=== PATIENT | male | born 1955 | race Caucasian/White ===

== ENCOUNTER 2022-09-11 11:02 | Observation (INO) | payer MEDICARE, SELFPAY ==
[2022-09-11] VITALS (10 sets, daily range): BP systolic 146–187; BP diastolic 105–123; PULSE 67–99; RESP 16–28; TEMP 36.2–36.6; O2SAT 95–100; BMI 25.7; BMI 27.4
--- NOTE | 2022-09-11 11:20 | EKG12_ITS ---
Test Reason : CP Blood Pressure : / mmHG Vent. Rate : 091 BPM Atrial Rate : 091 BPM P-R Int : 186 ms QRS Dur : 076 ms QT Int : 334 ms P-R-T Axes : 034 -09 036 degrees QTc Int : 410 ms Normal sinus rhythm Low voltage QRS Borderline ECG Confirmed by JOS SON, KULDIP ([id number]), sound editor ZOHRA MATHEWS ([id number]) on 09/12/2022 1:37:06 PM Referred By: Confirmed By:KULDIP ARGUELLO MD
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
--- NOTE | 2022-09-11 11:25 | CT_ITS ---
STUDY: CT BRAIN WITHOUT CONTRAST REASON FOR EXAM: Male, 67 years old. chest pain for 3 days, numbness in right fingers, weakness RADIATION DOSAGE (If Supplied By Facility): CTDIvol = ( 29.62 ) mGy, DLP = ( 1569.17 ) mGycm TECHNIQUE: Transaxial CT imaging of the brain was performed without administration of intravenous contrast material. Individualized dose optimization techniques were used for this CT. COMPARISON: None. FINDINGS: Normal soft tissue structures. Normal calvarium. There is mild cerebral atrophy with widening of the extra-axial spaces and ventricular dilatation. Normal white matter tracts of the cerebral hemispheres. Normal basal ganglia and thalami. Normal brainstem. Normal cerebellum. There is no intracranial hemorrhage. There are no findings of an acute ischemic infarction. Normal visualized paranasal sinuses. IMPRESSION: Chronic involutional changes of the brain. STUDY: CTA HEAD AND NECK WITH CONTRAST REASON FOR EXAM: Male, 67 years old. confusion, neck pain RADIATION DOSAGE (If Supplied By Facility): CTDIvol = ( 29.62 ) mGy, DLP = ( 1569.17 ) mGycm TECHNIQUE: CT angiography was performed with a multi-detector CT scanner. Data acquisition was obtained from the skull base through the vertex following intravenous administration of IV 100mL [id number]-370. MIP images were reconstructed from the axial data set. Post-processing of the angiographic images was performed, with multiplanar reformation and 3D reconstruction. Individualized dose optimization techniques were used for this CT. COMPARISON: No relevant priors. FINDINGS: Normal bilateral petrous carotid arteries. There is calcified plaque formation of the right cavernous carotid artery, with a mild stenosis (less than 50%). Normal left cavernous carotid artery with a normal supraclinoid bifurcation. Normal right A1 segments of the anterior cerebral artery. Normal left A1 segments of the anterior cerebral artery. Normal intact anterior communicating artery (ACOM). Normal bilateral A2 segments of the anterior cerebral arteries. Normal right M1 and M2 segments of the middle cerebral arteries, with a normal M1 bifurcation. Normal left M1 and M2 segments of the middle cerebral arteries, with a normal M1 bifurcation. Normal right posterior communicating artery (PCOM). Normal left posterior communicating artery (PCOM). There is a small atretic left vertebral artery with a dominant right vertebral artery. There is tortuosity with elongation of the basilar artery. The visualized bilateral superior cerebellar (SCA) arteries are normal. Normal bilateral P1, P2 and visualized P3 segments of the posterior cerebral arteries. The right posterior cerebral artery is hypoplastic most likely developmentally. There is no demonstrated aneurysm of the [place] of [place]. AORTIC ARCH: There is atherosclerotic calcific plaque formation of the aortic arch and great vessels arising from the aortic arch, without a hemodynamically significant stenosis. There is a normal origin of the brachiocephalic, left common carotid, and left subclavian arteries. Normal origins of the brachiocephalic, left common carotid, and left subclavian arteries. RIGHT CAROTID ARTERIES: Normal right common carotid artery (CCA). Normal right common carotid bulb. Normal origin of the right internal carotid (ICA) artery without a hemodynamically significant stenosis. Normal visualized cervical portion of the right internal carotid artery. Normal origin of the right external carotid artery (ECA). LEFT CAROTID ARTERIES: Normal left common carotid artery (CCA). There is moderate atherosclerotic plaque formation with moderate narrowing of the carotid bulb. There is moderate atherosclerotic plaque formation of the origin of the left internal carotid artery with an estimated stenosis of 50-69% stenosis. Normal visualized cervical portion of the left internal carotid artery. Normal origin of the left external carotid artery (ECA). VERTEBRAL ARTERIES: There is enhancement within the bilateral vertebral arteries with a small left vertebral artery, and a dominant right vertebral artery. Severe atherosclerotic stenosis due to calcified and noncalcified plaque/mural thrombus at the junction of the right subclavian and vertebral artery see image #88/[id number] series 4. There is severe/high-grade stenosis of the left vertebral artery/subclavian junction with collateral vessels seen around the chronic stenosis/occlusion. Cervical spine: Moderate to severe degenerative changes are present throughout the cervical spine with severe disc space narrowing from C3-C4 down to C6-C7. Mild central canal stenosis with mass effect on anterior aspect of the cord is present at several levels due to disc osteophyte complexes. Moderate to severe bilateral foraminal stenosis with nerve root compression is also present at multiple levels due to uncovertebral facet joint hypertrophy. CT/CTA Head AND Neck W/ Contrast IMPRESSION: 1. Normal [place] of [place] without a demonstrated aneurysm or hemodynamically significant stenosis. 2. No thrombus or occlusion is seen in the major intracranial arteries. 3. There is moderate atherosclerotic plaque formation of the origin of the left internal carotid artery with an estimated stenosis of 50-69% stenosis. 4. Severe atherosclerotic stenosis due to calcified and noncalcified plaque/mural thrombus at the junction of the right subclavian and vertebral artery see image #88/530 series 4. 5. There is severe/high-grade stenosis of the left vertebral artery/subclavian junction with collateral vessels seen around the chronic stenosis/occlusion. 6. Moderate to severe multilevel degenerative changes of the cervical spine Electronically Signed: Taiwo García MD at 13:08 EST ,
[2022-09-11 11:30] LABS: Absolute Lymphocyte Count 2.22 X10^3/uL (0.83-4.51); Absolute Neutrophil Count 4.8 X10^3/uL (2.0-7.7); Basophil# 0.04 X10^3/uL; Basophil% 0.5 % (0-1); Eosinophil# 0.06 X10^3/uL; Eosinophils% 0.7 % (0-5); Hemoglobin 16.7 g/dL (13.0-16.5); Lymphocyte # 2.22 X10^3/ul (0.83-4.51); Lymphocyte % 27.5 % (19-41); Mean Corp Hgb Conc 34.1 g/dL (32-36); Mean Corpuscular Hgb 30.6 pg (27.0-32.0); Mean Corpuscular Volume 89.7 fL (80-94); Mean Platelet Vol. 8.7 fl (6.2-12.0); Monocyte# 0.93 X10^3/uL; Monocyte% 11.5 % (0-10); NRBC Flagged by Analyzer 0 % (0-5); Neutrophil # 4.79 X10^3/uL (2.7-7.7); Neutrophil % 59.4 % (47-70); Platelet Count 202 K/mm3 (150-450); RBC Distribution Width CV 12.5 % (11.6-14.6); Red Blood Count 5.46 M/mm3 (4.6-6.2); White Blood Count 8.1 K/mm3 (4.4-11.0)
[2022-09-11 11:40] LABS: D-Dimer Quantitative (DVT/PE) 0.58 FEU/ug/m (0.27-0.49)
[2022-09-11 11:44] LABS: Anion Gap 8 (5-15); BUN 21 mg/dL (7-18); Calcium,Total 9.1 mg/dL (8.5-10.1); Chloride 106 mmol/L (98-107); Creatinine, Serum 1.05 mg/dL (0.70-1.30); EST Glomerular Filtration Rate 75 mL/min (>60); Est Glom Filt Rate - Afr Amer 90 mL/min (>60); Estimated Creatinine Clearance 71.71 ml/min; Glucose 124 mg/dL (74-106); Potassium 4.2 mmol/L (3.5-5.1); Sodium Level 139 mmol/L (136-145); Troponin-I HS (w/2H Reflex) 5 pg/mL (3.0-78.0)
--- NOTE | 2022-09-11 11:45 | RAD_ITS ---
STUDY: X-RAY CHEST REASON FOR EXAM: Male, 67 years old. chest pain for 3 days, numbness in right fingers, weakness TECHNIQUE: Single AP portable view of the chest. COMPARISON: November 26, 2012 FINDINGS: The lungs are clear and expanded. There is no demonstrated pleural abnormality. Normal size heart. Normal mediastinum and sapna. Normal visualized pulmonary arteries. There is atherosclerotic tortuosity of the aortic arch and descending thoracic aorta. There are diffuse degenerative changes of the visualized thoracic spine. Suture anchors are seen in the right humeral head. There is no demonstrated abnormality of the visualized soft tissue structures of the upper abdomen. RAD/Chest 1 View (Portable) IMPRESSION: No acute process Electronically Signed: Taiwo García MD at 12:22 EST ,
[2022-09-11 13:26] LABS: Reflex Troponin-HS? (from REC) Y
[2022-09-11] MEDS: Aspirin 81 MG TAB.CHEW 324 MG PO (13:37)
[2022-09-11] MEDS: Labetalol (Prefilled) 20 MG/4 ML IV (13:59)
[2022-09-11 14:23] LABS: Troponin-I HS 5 pg/mL (3.0-78.0)
--- NOTE | 2022-09-11 14:23 | PCM.HP.STD ---
HPI - General General Date of Admission: 09/11/22 HPI Narrative ELIUD GARLAND, is a 67 M who presents to the hospital with right-sided chest pain as well as right arm achiness and numbness tingling in the tips of his right fingers. His right-sided chest pain is reproducible on palpation and is the exact same pain he has been feeling. He also states that he has significant neck pain because of a previous fractured cervical spine so it is very likely that these arm paresthesias are due to a radiculopathy however he also endorses slow mentation recently to the point where his girlfriend was concerned enough that she had asked him to come to the hospital for evaluation. Lab work is unremarkable, he does appear maybe a little bit dehydrated and his blood pressure is elevated. He did have a CTA of the head and neck in the ER demonstrated severe atherosclerotic stenosis at the junction of the right subclavian and vertebral artery and then there is also a high-grade stenosis of the left vertebral artery and subclavian artery as well as significant moderate to severe multilevel degenerative changes of his cervical spine consistent with his history of a fracture. [facility] Medical History (Updated 09/11/22 @ 13:45 by MICHELE Diaz) Back pain Home Medications celecoxib 200 mg capsule 200 mg PO PRN PRN arthritis 09/11/22 [History Last Taken Unknown] cyclobenzaprine 10 mg tablet 10 mg PO BID 09/11/22 [History Last Taken 09/11/22 13:40] gabapentin 300 mg capsule 600 mg PO BID 09/11/22 [History Last Taken Unknown] hydrocodone-acetaminophen 5-325mg 5mg-325mg 1 tab PO BID 09/11/22 [History Last Taken 09/11/22 13:40] Allergy/AdvReac Type Severity Reaction Status Date / Time No Known Allergies Allergy Verified 09/11/22 11:05 Family History (Updated 09/11/22 @ 14:[address] Ramy Deluca MD) Other Heart disease Surgical History (Updated 09/11/22 @ 11:17 by Daphney Denise) History of lumbar surgery History of rotator cuff surgery Social History Smoking Status: Never smoker ROS Constitutional Constitutional: Denies chills, fatigue, fever(s) or malaise Eyes Eyes: Denies blurry vision ENT HEENT: Denies headache(s) or nasal discharge Cardiovascular Cardiovascular: Reports other Details: Right-sided chest wall pain ; Denies chest pain, dyspnea on exertion or syncope Respiratory/Chest Respiratory/Chest: Denies cough, shortness of breath at rest or shortness of breath with exertion Gastrointestinal Gastrointestinal: Denies constipation, diarrhea, nausea or vomiting Genitourinary Genitourinary: Denies dysuria Musculoskeletal Musculoskeletal: Reports neck pain Neurologic Neurologic: Reports paresthesias RUE (On the tips of all of his fingers); Denies focal weakness, numbness or tremor(s) Psychiatric Psychiatric: Denies anxiety or depression Vital Signs Vital Signs Vital Signs: 09/11/22 11:03 09/11/22 11:13 09/11/22 11:14 Temperature 97.2 F L Temperature Source Temporal Pulse Rate 99 97 Respiratory Rate 16 24 H Respiratory Effort Normal Non-Labored Blood Pressure 148/113 H 162/109 H Blood Pressure Mean 124 126 Pulse Ox 96 95 Oxygen Delivery Method Room Air Room Air 09/11/22 11:20 09/11/22 13:03 09/11/22 14:07 Temperature 98 F Temperature Source Temporal Pulse Rate 83 69 Respiratory Rate 16 28 H Respiratory Effort Blood Pressure 187/123 H 174/114 H Blood Pressure Mean 144 134 Pulse Ox 96 100 95 Oxygen Delivery Method Room Air Room Air Room Air Weight Weight: 185 lb Body Mass Index (BMI) 25.7 Physical Exam Narrative General: Alert, Oriented x3, Cooperative, No apparent distress HEENT: Atraumatic, PERRLA, EOMI, Normocephalic Oral: Moist Mucosa Neck: Supple, No JVD Lungs: Diminished, Normal air movement, No rhonchi, No wheeze, No rales Cardiovascular: Regular rate, Regular Rhythm, Normal S1, Normal S2, No murmurs, his chest pain is reproducible with palpation to his right chest Abdomen: Soft, Non Tender, Non-Distended, No Hepato-splenomegaly Extremities: No edema, Capillary Refill Less than 3 Seconds Skin: No rashes, No breakdown Musculoskeletal: No Tenderness to Palpation of Joints or Extremities Neurological: Cranial nerves II-XII grossly intact, Motor Exam 5/5 strength throughout, slight decrease in sensation on his right hand Psych/Mental Status: Normal Affect, Appropriate Results Lab / Micro Data Result Diagrams: 09/11/22 11:20 09/11/22 11:20 Labs: Laboratory Results - last 24 hr 09/11/22 11:20: WBC 8.1, RBC 5.46, Hgb 16.7 H, Hct 49.0, MCV 89.7, MCH 30.6, MCHC 34.1, RDW Std Deviation 41.0, RDW Coeff of Xander 12.5, Plt Count 202, MPV 8.7, Immature Gran % (Auto) 0.400, Neut % (Auto) 59.4, Lymph % (Auto) 27.5, [place] % (Auto) 11.5 H, Eos % (Auto) 0.7, Baso % (Auto) 0.5, Absolute Neuts (auto) 4.8, Absolute Lymphs (auto) 2.22, Nucleated RBC % 0 09/11/22 11:20: D-Dimer Quant (PE/DVT) 0.58 H* 09/11/22 11:20: Sodium 139, Potassium 4.2, Chloride 106, Carbon Dioxide 25.0, Anion Gap 8, BUN 21 H, Creatinine 1.05, Estim Creat Clear Calc 71.71, Est GFR (MDRD) Af Amer 90, Est GFR (MDRD) Non-Af 75, BUN/Creatinine Ratio 20.0, Glucose 124 H, Calcium 9.1, Troponin I High Sens 5 09/11/22 14:00: Troponin I High Sens 5 Radiology Impression Head/Neck CTA 09/11/22 11:25 IMPRESSION: 1. Normal [place] without a demonstrated aneurysm or hemodynamically significant stenosis. 2. No thrombus or occlusion is seen in the major intracranial arteries. 3. There is moderate atherosclerotic plaque formation of the origin of the left internal carotid artery with an estimated stenosis of 50-69% stenosis. 4. Severe atherosclerotic stenosis due to calcified and noncalcified plaque/mural thrombus at the junction of the right subclavian and vertebral artery see image #88/530 series 4. 5. There is severe/high-grade stenosis of the left vertebral artery/subclavian junction with collateral vessels seen around the chronic stenosis/occlusion. 6. Moderate to severe multilevel degenerative changes of the cervical spine Electronically Signed: Taiwo García MD at 13:08 EST Reading Location ID and State: [address] [place] [address] , Service support , Chest X-Ray 09/11/22 11:45 IMPRESSION: No acute process Electronically Signed: Taiwo García MD at 12:22 EST Reading Location ID and State: [facility] / [place] , Service support , Assessment & Plan Assessment/Plan (1) Arm paresthesia, right: (2) Stenosis of right subclavian artery: PLAN: Plan 1. Right arm radiculopathy versus possible TIA with bilateral vertebral artery stenoses ? I feel like a TIA is is less likely given his cervical neck pathology as well as the findings on his CTA of the head and neck ? We will consult vascular surgery for an opinion on his vertebral artery/subclavian junction stenoses bilaterally ? Will obtain an MRI and an echo for completeness as well as the fact that he has been endorsing some foggy mentation though his orientation questions were accurate ? We will give him a liter fluid, his hemoglobin is elevated and with his sluggish mentation this could be due to dehydration ? Continue with aspirin and Lipitor with as needed blood pressure medications will have nursing check bilateral blood pressures to compare DVT: Ambulation Charges/Coding Visit Charges Inpatient E&M: 70718 Init Hosp L2
--- NOTE | 2022-09-11 15:11 | ECHOD_ITS ---
Reason For Study: TIA/ CVA Procedure This was a 2D Doppler, Color Flow transthoracic echocardiogram. Exam performed portable in patient room. Left Ventricle Normal LV size. Left ventricular systolic function is normal. The estimated ejection fraction is 65 %. Stage 1 diastolic dysfunction. No regional wall motion abnormalities noted. Right Ventricle Normal RV size. Normal systolic function. Atria Normal left atrium. Normal right atrium. Bubble contrast study negative for right to left interatrial shunt. Mitral Valve Normal mitral valve. Tricuspid Valve Normal tricuspid valve. Mild (1+) tricuspid valve insufficiency. Pulmonary artery systolic pressure is 28 mmHg. Aortic Valve Trisinus/trileaflet aortic valve. Pulmonic Valve Normal pulmonic valve. Great Vessels Normal aortic root. The pulmonary artery is normal size. Normal inferior vena cava. Pericardium/Pleural No pericardial effusion. Medication Performed a rapid injection of agitated mix of 9 cc saline and 1cc air to assess for atrial septal defect. MMode/2D Measurements & Calculations LVIDd: 4.5 cm IVSd: 0.92 cm Ao root diam: 4.0 cm LVIDs: 3.0 cm LVPWd: 0.97 cm RVDd: 3.7 cm FS: 32.4 % LAV(MOD-bp): 23.2 ml LVAd ap4: 33.3 cm2 SV(MOD-sp4): 57.2 ml LAV(MOD-bp) Indexed: 11.3 ml/m2 LVLd ap4: 9.0 cm LAV(MOD-sp2): 24.4 ml EDV(MOD-sp4): 99.2 ml LAV(MOD-sp4): 22.2 ml EDV(sp4-el): 104.8 ml LVAs ap4: 19.2 cm2 LVLs ap4: 7.7 cm ESV(MOD-sp4): 42.0 ml ESV(sp4-el): 40.5 ml EF(MOD-sp4): 57.7 % EF(sp4-el): 61.3 % SV(sp4-el): 64.2 ml LA A4 area: 11.0 cm2 LA dimension(2D): 3.3 cm RA A4 area: 10.6 cm2 Time Measurements MV dec time: 0.24 sec Doppler Measurements & Calculations MV E max osman: 57.4 cm/sec Lat Peak E' Osman: 11.3 cm/sec Med Peak E' Osman: 8.7 cm/sec MV A max osman: 80.7 cm/sec E/E' lat: 5.1 E/E' med: 6.6 MV E/A: 0.71 Ao V2 max: 111.7 cm/sec LV V1 max: 102.9 cm/sec PA V2 max: 89.5 cm/sec Ao max P.0 mmHg LV V1 max P.2 mmHg TR max osman: 248.5 cm/sec TR max P.7 mmHg ECHO/Echo Complete Interpretation Summary Normal LV size. Left ventricular systolic function is normal. The estimated ejection fraction is 65 %. Stage 1 diastolic dysfunction. Pulmonary artery systolic pressure is 28 mmHg. Bubble contrast study negative for right to left interatrial shunt. Ordering Physician: Ramy Deluca Performed By: Lauren Grey RDCS
[2022-09-11] MEDS: 0.9% Normal Saline 1,000 ML 100 ML IV (16:10)
--- NOTE | 2022-09-11 18:41 | NURSING ---
Upon entering patient's room, patient had a bottle of pills in hand. This nurse inquired about what he took, and patient stated, I took a muscle relaxer and a pain pill. This nurse explained to patient that the MD ordered his home narcotic dose and wanted to hold his muscle relaxers at this time, until further testing was performed. This nurse explained that patient could not take his own medications, and agreed to locking medications in the med room. MD notified.
[2022-09-11] MEDS: Atorvastatin Calcium 80 MG Tablet PO (22:03)
[2022-09-11] MEDS: HYDROcodone Bitartrate/Apap 5/325 Tablet PO (22:06)
[2022-09-12] VITALS (15 sets, daily range): BP systolic 138–179; BP diastolic 103–123; PULSE 69–97; RESP 16–18; TEMP 36.3–37.1; O2SAT 94–97; BMI 27.4
[2022-09-12] MEDS: 0.9% Normal Saline 1,000 ML 100 ML IV (01:30)
[2022-09-12] MEDS: Acetaminophen 325 MG Tablet 650 MG PO (03:07)
[2022-09-12 05:55] LABS: Absolute Lymphocyte Count 2.43 X10^3/uL (0.83-4.51); Absolute Neutrophil Count 3.3 X10^3/uL (2.0-7.7); Basophil# 0.04 X10^3/uL; Basophil% 0.6 % (0-1); Eosinophil# 0.09 X10^3/uL; Eosinophils% 1.3 % (0-5); Hematocrit 49.2 % (40-54); Hemoglobin 16.2 g/dL (13.0-16.5); Lymphocyte # 2.43 X10^3/ul (0.83-4.51); Lymphocyte % 36.3 % (19-41); Mean Corp Hgb Conc 32.9 g/dL (32-36); Mean Corpuscular Hgb 30.3 pg (27.0-32.0); Mean Platelet Vol. 8.8 fl (6.2-12.0); Monocyte# 0.79 X10^3/uL; Monocyte% 11.8 % (0-10); NRBC Flagged by Analyzer 0 % (0-5); Neutrophil # 3.32 X10^3/uL (2.7-7.7); Neutrophil % 49.7 % (47-70); Platelet Count 185 K/mm3 (150-450); RBC Distribution Width CV 12.7 % (11.6-14.6); RBC Distribution Width SD 43.2 fl (35.1-43.9); Red Blood Count 5.35 M/mm3 (4.6-6.2); White Blood Count 6.7 K/mm3 (4.4-11.0)
[2022-09-12] MEDS: HYDROcodone Bitartrate/Apap 5/325 Tablet PO ×2 (06:03→18:03)
--- NOTE | 2022-09-12 06:15 | EKG12_ITS ---
Test Reason : CHEST PAIN Blood Pressure : / mmHG Vent. Rate : 071 BPM Atrial Rate : 071 BPM P-R Int : 196 ms QRS Dur : 074 ms QT Int : 374 ms P-R-T Axes : 041 -10 030 degrees QTc Int : 406 ms Normal sinus rhythm Normal ECG No previous ECGs available Confirmed by JOS SON, KULDIP ([id number]), managing editor ZOHRA MATHEWS ([id number]) on 09/13/2022 11:06:44 AM Referred By: EVERTON Confirmed By:KULDIP ARGUELLO MD
[2022-09-12 06:28] LABS: Anion Gap 6 (5-15); BUN 17 mg/dL (7-18); BUN/Creat Ratio 16.3 RATIO (10-20); Calcium,Total 8.8 mg/dL (8.5-10.1); Chloride 109 mmol/L (98-107); Cholesterol 204 mg/dL (200); Creatinine, Serum 1.04 mg/dL (0.70-1.30); EST Glomerular Filtration Rate 75 mL/min (>60); Est Glom Filt Rate - Afr Amer 91 mL/min (>60); Estimated Creatinine Clearance 70.19 ml/min; Glucose 95 mg/dL (74-106); High Density Lipoprotein 47 mg/dL; Potassium 4.2 mmol/L (3.5-5.1); Sodium Level 138 mmol/L (136-145); Triglycerides 195 mg/dL; Very Low Density Lipoprotein 39 mg/dL (5-40)
[2022-09-12] MEDS: Aspirin 81 MG TAB.CHEW PO (08:34)
--- NOTE | 2022-09-12 09:22 | MRI_ITS ---
EXAM: MR HEAD WITHOUT INTRAVENOUS CONTRAST CLINICAL INDICATION: CVA TECHNIQUE: Multiplanar and multisequence MR images of the brain were obtained without intravenous contrast. This report was created using [employer] report generation technology. COMPARISON: CTA head and neck with contrast 09/11/2022. FINDINGS: BRAIN AND EXTRA-AXIAL SPACES: Unremarkable. No intra- or extra-axial hemorrhage. No intracranial mass or mass effect. Posterior fossa structures are unremarkable. No hydrocephalus. No diffusion restriction to suspect acute or subacute ischemic infarct. No focal signal abnormalities throughout the brain parenchyma in all pulse sequences. Normal ventricles and cisterns. SELLA: Unremarkable. Normal sella turcica, pituitary gland, infundibular stalk, optic chiasm and hypothalamus. AUDITORY SYSTEM: Unremarkable. The internal auditory canals are patent. BONES/JOINTS: Unremarkable. No discrete lytic or blastic abnormalities. SINUSES: Unremarkable as visualized. Clear. MASTOID AIR CELLS: Unremarkable as visualized. Clear. ORBITS: Unremarkable as visualized. Both globes, extraocular muscles, optic nerves and retrobulbar fat appear unremarkable. VASCULATURE: Unremarkable as visualized. Normal flow voids in the major intracranial circulation. MRI/Brain without Contrast IMPRESSION: Negative MRI brain without contrast. Electronically Signed: Ulises De Santiago MD at 10:05 EST ,
--- NOTE | 2022-09-12 10:16 | PN.HOSP_ITS ---
Reason for Visit Reason for Visit: Diagnoses Stricture of artery (09/11/22) Paresthesia of skin (09/11/22) Subjective Subjective Still with paresthesias in the right upper extremity. Patient states that back in 1994, patient had a C2 fracture that required him being in a halo for about 3 months. Did have some right-sided hemiparalysis at that time but that since has resolved. He states that this was exacerbated when he was self adjusting his neck. Objective Data Objective Data Vital Signs: Vital Signs Temp Pulse Resp BP Pulse Ox O2 Del Method 36.8 C 69 16 143/106 H 97 Room Air 09/12/22 06:00 09/12/22 06:00 09/12/22 06:00 09/12/22 08:31 09/12/22 06:00 09/12/22 06:00 Oxygen Delivery Method Room Air Weight: 86.9 kg Body Mass Index (BMI) 27.4 Intake & Output: Intake and Output for Last 24 Hours 09/10/22 09/11/22 09/12/22 23:59 23:59 23:59 Intake Total 480 / 480 1643.33 / 1643.33 Balance 480 / 480 1643.33 / 1643.33 Lab / Micro Data Result Diagrams: 09/12/22 05:48 09/12/22 05:48 Labs: Laboratory Results - last 24 hr 09/11/22 11:20: WBC 8.1, RBC 5.46, Hgb 16.7 H, Hct 49.0, MCV 89.7, MCH 30.6, MCHC 34.1, RDW Std Deviation 41.0, RDW Coeff of [place]ander 12.5, Plt Count 202, MPV 8.7, Immature Gran % (Auto) 0.400, Neut % (Auto) 59.4, Lymph % (Auto) 27.5, [place] % (Auto) 11.5 H, Eos % (Auto) 0.7, Baso % (Auto) 0.5, Absolute Neuts (auto) 4.8, Absolute Lymphs (auto) 2.22, Nucleated RBC % 0 09/11/22 11:20: D-Dimer Quant (PE/DVT) 0.58 H* 09/11/22 11:20: Sodium 139, Potassium 4.2, Chloride 106, Carbon Dioxide 25.0, Anion Gap 8, BUN 21 H, Creatinine 1.05, Estim Creat Clear Calc 71.71, Est GFR (MDRD) Af Amer 90, Est GFR (MDRD) Non-Af 75, BUN/Creatinine Ratio 20.0, Glucose 124 H, Calcium 9.1, Troponin I High Sens 5 09/11/22 14:00: Troponin I High Sens 5 09/12/22 05:48: WBC 6.7, RBC 5.35, Hgb 16.2, Hct 49.2, MCV 92.0, MCH 30.3, MCHC 32.9, RDW Std Deviation 43.2, RDW Coeff of [place]ander 12.7, Plt Count 185, MPV 8.8, Immature Gran % (Auto) 0.300, Neut % (Auto) 49.7, Lymph % (Auto) 36.3, [place] % (Auto) 11.8 H, Eos % (Auto) 1.3, Baso % (Auto) 0.6, Absolute Neuts (auto) 3.3, Absolute Lymphs (auto) 2.43, Nucleated RBC % 0 09/12/22 05:48: Sodium 138, Potassium 4.2, Chloride 109 H, Carbon Dioxide 23.0, Anion Gap 6, BUN 17, Creatinine 1.04, Estim Creat Clear Calc 70.19, Est GFR (MDRD) Af Amer 91, Est GFR (MDRD) Non-Af 75, BUN/Creatinine Ratio 16.3, Glucose 95, Calcium 8.8, Triglycerides 195, Cholesterol 204 H, LDL Cholesterol 118, VLDL Cholesterol 39, HDL Cholesterol 47 09/12/22 06:45: Lactic Acid 1.0 Radiography Diagnostic Testing: Radiology Impression Head/Neck CTA 09/11/22 11:25 IMPRESSION: 1. Normal [place] without a demonstrated aneurysm or hemodynamically significant stenosis. 2. No thrombus or occlusion is seen in the major intracranial arteries. 3. There is moderate atherosclerotic plaque formation of the origin of the left internal carotid artery with an estimated stenosis of 50-69% stenosis. 4. Severe atherosclerotic stenosis due to calcified and noncalcified plaque/mural thrombus at the junction of the right subclavian and vertebral artery see image #88/530 series 4. 5. There is severe/high-grade stenosis of the left vertebral artery/subclavian junction with collateral vessels seen around the chronic stenosis/occlusion. 6. Moderate to severe multilevel degenerative changes of the cervical spine Electronically Signed: Taiwo García MD at 13:08 EST , Chest X-Ray 09/11/22 11:45 IMPRESSION: No acute process Electronically Signed: Taiwo García MD at 12:22 EST , Brain MRI 09/12/22 09:22 IMPRESSION: Negative MRI brain without contrast. Electronically Signed: Ulises De Santiago MD at 10:05 EST , Physical Exam Const alert and no apparent distress HEENT head/scalp atraumatic Neuro Neuro Narrative: Muscle strength out of 5 in bilateral upper extremities. Does have some subjective sensation loss in the right lateral forearm. Assessment & Plan Assessment/Plan (1) Arm paresthesia, right: PLAN: MRI brain negative Suspect this may be radicular given the patient's history of a C2 fracture. Check MRI of the cervical spine If no evidence of any abscess then would start him on steroids and see what else would need to be done. (2) Stenosis of right subclavian artery: PLAN: Lifelong non-smoker. Continue with aspirin and atorvastatin Follow-up with vascular surgery PLAN: Plan Chronic back pain: Continue with pain medications plus gabapentin and cyclobenzaprine. DVT: Ambulation Charges/Coding Visit Charges Inpatient E&M: 44987 Subs Hosp L2
--- NOTE | 2022-09-12 10:37 | CON.PCM.SX_ITS ---
Assessment & Plan Assessment/Plan (1) Carotid stenosis, left: PLAN: -has moderate left ICA stenosis, soft plaque and large caliber vessel -right subclavian tortuous, some artifact from contrast in vein -await MRI results; since symptoms remain, if it was a CVA there should be acute findings -if MRI negative would be worth it to check MRI cervical spine given his history of DJD/fracture and symptom pattern HPI Consult Data Date of Consult: 09/12/22 HPI Narrative HPI Narrative: ELIUD GARLAND, is a 67 M who presents with right upper extremity tingling/numbness and weakness beginning yesterday. No prior similar episodes. Does have left lower extremity similar symptoms that are from lumbar degenerative spine disease. Both weakness and paresthesias are improved but still present. Also with right chest wall pain/dull aching that started at similar time, improved but still present Was not on antiplatelet or statin prior to admission. Has history of prior C2 fracture that required halo. He was later found to have left vertebral occlusion that they attributed to the fracture. Not aware of carotid stenosis prior to now. [facility] Medical History Back pain Back pain due to injury Home Medications amlodipine 5 mg tablet 5 mg PO DAILY HTN 09/11/22 [History Last Taken Unknown] celecoxib 200 mg capsule 200 mg PO PRN PRN arthritis 09/11/22 [History Last Taken Unknown] cyclobenzaprine 10 mg tablet 10 mg PO BID 09/11/22 [History Last Taken 09/11/22 13:40] gabapentin 300 mg capsule 600 mg PO BID 09/11/22 [History Last Taken Unknown] hydrocodone-acetaminophen 5-325mg 5mg-325mg 1 tab PO BID 09/11/22 [History Last Taken 09/11/22 13:40] Allergy/AdvReac Type Severity Reaction Status Date / Time No Known Allergies Allergy Verified 09/11/22 11:05 Family History Other Heart disease Surgical History History of lumbar surgery History of rotator cuff surgery Social History Smoking Status: Never smoker ROS Constitutional Constitutional: Reports weakness; Denies chills, fever(s), frequent falls or lethargy Eyes Eyes: Denies blind spots, change in vision or loss of vision ENT HEENT: Denies bleeding gums, hoarseness or sore throat Cardiovascular Cardiovascular: Reports chest pain, numbness in extremities and weakness in extremities; Denies abdominal pain, bluish discoloration of hand/feet, chest pain with activity, claudication, cold extremities, cyanosis, dyspnea on exertion, erythema on extremities, irregular heart rhythm, leg edema or leg ulcers Respiratory/Chest Respiratory/Chest: Denies cough, excessive phlegm production, shortness of breath at rest, shortness of breath with exertion or wheezing Genitourinary Genitourinary: Denies dysuria or hematuria Musculoskeletal Musculoskeletal: Denies abnormal gait Integumentary Integumentary: Reports other Details: ; Denies erythema, non-healing lesions or wounds Neurologic Neurologic: Reports focal weakness, numbness and paresthesias; Denies abnormal speech, headache(s), loss of vision or sensory deficit Hematologic/Lymphatic Hematologic/Lymphatic: Denies easy bleeding, easy bruising or lymphadenopathy Physical Exam Const alert, oriented x3, no apparent distress and healthy appearing General Appearance: cooperative; Negative for combative or lethargic Orientation / Consciousness: awake Exam Limitations: no limitations HEENT Head and Scalp: normocephalic and atraumatic Eyes EOMs intact bilaterally General Eye: normal appearance of both eyes Neck full ROM, no lymphadenopathy and thyroid normal General: trachea midline Thyroid: thyroid normal Resp normal respiratory effort and no use of accessory muscles Effort and Inspection: Negative for labored, stridor or audible wheezes Cardio regular rate and regular rhythm Peripheral Pulses: brachial pulses present and radial pulses present Back/Spine Cervical Spine: cervical ROM normal Extremity full ROM, normal capillary refill and no clubbing, cyanosis or edema Skin no rashes or lesions noted and no wounds Neuro oriented x3, CN's II-XII intact bilaterally and no sensory deficits noted Neuro Narrative: subtle weakness with flexion RUE Psych thought process normal, cooperative, affect normal, speech normal and activity /motor behavior normal Lab / Micro Data Result Diagrams: 09/12/22 05:48 09/12/22 05:48 Labs: Laboratory Results - last 24 hr 09/11/22 11:20: WBC 8.1, RBC 5.46, Hgb 16.7 H, Hct 49.0, MCV 89.7, MCH 30.6, MCHC 34.1, RDW Std Deviation 41.0, RDW Coeff of [place] 12.5, Plt Count 202, MPV 8.7, Immature Gran % (Auto) 0.400, Neut % (Auto) 59.4, Lymph % (Auto) 27.5, [place] % (Auto) 11.5 H, Eos % (Auto) 0.7, Baso % (Auto) 0.5, Absolute Neuts (auto) 4.8, Absolute Lymphs (auto) 2.22, Nucleated RBC % 0 09/11/22 11:20: D-Dimer Quant (PE/DVT) 0.58 H* 09/11/22 11:20: Sodium 139, Potassium 4.2, Chloride 106, Carbon Dioxide 25.0, Anion Gap 8, BUN 21 H, Creatinine 1.05, Estim Creat Clear Calc 71.71, Est GFR (MDRD) Af Amer 90, Est GFR (MDRD) Non-Af 75, BUN/Creatinine Ratio 20.0, Glucose 124 H, Calcium 9.1, Troponin I High Sens 5 09/11/22 14:00: Troponin I High Sens 5 09/12/22 05:48: WBC 6.7, RBC 5.35, Hgb 16.2, Hct 49.2, MCV 92.0, MCH 30.3, MCHC 32.9, RDW Std Deviation 43.2, RDW Coeff of [place]ander 12.7, Plt Count 185, MPV 8.8, Immature Gran % (Auto) 0.300, Neut % (Auto) 49.7, Lymph % (Auto) 36.3, [place] % (Auto) 11.8 H, Eos % (Auto) 1.3, Baso % (Auto) 0.6, Absolute Neuts (auto) 3.3, Absolute Lymphs (auto) 2.43, Nucleated RBC % 0 09/12/22 05:48: Sodium 138, Potassium 4.2, Chloride 109 H, Carbon Dioxide 23.0, Anion Gap 6, BUN 17, Creatinine 1.04, Estim Creat Clear Calc 70.19, Est GFR (MDRD) Af Amer 91, Est GFR (MDRD) Non-Af 75, BUN/Creatinine Ratio 16.3, Glucose 95, Calcium 8.8, Triglycerides 195, Cholesterol 204 H, LDL Cholesterol 118, VLDL Cholesterol 39, HDL Cholesterol 47 09/12/22 06:45: Lactic Acid 1.0 Radiology Impression Head/Neck CTA 09/11/22 11:25 IMPRESSION: 1. Normal [place] without a demonstrated aneurysm or hemodynamically significant stenosis. 2. No thrombus or occlusion is seen in the major intracranial arteries. 3. There is moderate atherosclerotic plaque formation of the origin of the left internal carotid artery with an estimated stenosis of 50-69% stenosis. 4. Severe atherosclerotic stenosis due to calcified and noncalcified plaque/mural thrombus at the junction of the right subclavian and vertebral artery see image #88/530 series 4. 5. There is severe/high-grade stenosis of the left vertebral artery/subclavian junction with collateral vessels seen around the chronic stenosis/occlusion. 6. Moderate to severe multilevel degenerative changes of the cervical spine Electronically Signed: Taiwo García MD at 13:08 EST , Chest X-Ray 09/11/22 11:45 IMPRESSION: No acute process Electronically Signed: Taiwo García MD at 12:22 EST , Brain MRI 09/12/22 09:22 IMPRESSION: Negative MRI brain without contrast. Electronically Signed: Ulises De Santiago MD at 10:05 EST ,
--- NOTE | 2022-09-12 13:03 | MRI_ITS ---
STUDY: MRI CERVICAL SPINE WITHOUT CONTRAST REASON FOR EXAM: Male, 67 years old. right arm paresthesia TECHNIQUE: Standardized fat and water weighted pulse sequences were obtained in the sagittal and axial planes. COMPARISON: None FINDINGS: Normal foramen magnum and brainstem-cervical cord junction. Normal craniovertebral junction. Normal anterior atlantoaxial articulation. Normal odontoid process. Normal cervical lordosis. No evidence for acute fracture or subluxation.. Interosseous hemangioma within the T1 vertebral body. C2-3: Normal endplates. Normal disc height, signal and morphology. Normal central canal and intervertebral neural foramina. C3-4: Normal endplates. Narrowed disc space and mild bulging disc.. Narrowing the central canal. Moderate bilateral neural foraminal stenosis secondary to bony hypertrophy C4-5: Grade 1 retrolisthesis. Narrowed disc space with mild bulging disc osteophyte complex. Mild narrowing of central canal. Mild to moderate bilateral neural foraminal stenosis secondary to disc and bony hypertrophy. C5-6: Narrowed disc space and minor endplate spurring with left foraminal disc/osteophyte protrusion. Normal central canal. Mild right neural foraminal encroachment and severe narrowing on the left. C6-7: Narrowed disc space and minor bulging disc osteophyte complex. Normal central canal. Severe bilateral neural foraminal stenosis. C7-T1: Grade 1 spondylolisthesis Normal endplates. Normal disc height, signal and mild bulging disc osteophyte complex. Normal central canal and intervertebral neural foramina. Normal cervical cord. Normal visualized soft tissue structures. MRI/Spine Cervical (Routine) IMPRESSION: No evidence for acute fracture or significant bony pathology.. Moderate spondylosis and multilevel spinal stenosis secondary to disc disease and bony hypertrophy Findings as above Electronically Signed: Jose J Brandon MD at 22:13 EST ,
--- NOTE | 2022-09-12 15:26 | CASEMGMT ---
SW did not complete a PHQ 9 as patient did not have a Stroke or TIA. Jennifer PEREZ
--- NOTE | 2022-09-12 16:05 | CASEMGMT ---
YELENA CM in to complete BALTAZAR Form at this time. RN CM explained BALTAZAR Form to patient, patient voiced understanding. Patient signed BALTAZAR form and filed in chart. Patient provided with copy of signed BALTAZAR form. Patient had no further questions or concerns at this time.
[2022-09-12] MEDS: amLODIPine 5 MG Tablet PO (16:52)
[2022-09-12] MEDS: cycloBENZAPRine HCl 10 MG Tablet PO (21:18)
[2022-09-12] MEDS: Gabapentin 600 MG Tablet PO (21:18)
[2022-09-12] MEDS: 0.9% Saline Lock 10 ML Syringe IV (21:18)
[2022-09-12] MEDS: Atorvastatin Calcium 80 MG Tablet PO (21:18)
[2022-09-12] MEDS: hydrALAZINE 20 MG/ML Vial 5 MG IV (21:24)
[2022-09-13 03:28] VITALS: BP 134/100; BP 143/122; PULSE 94; RESP 16; TEMP 36.8; O2SAT 94
[2022-09-13] MEDS: HYDROcodone Bitartrate/Apap 5/325 Tablet PO (03:43)
[2022-09-13 08:14] VITALS: O2SAT 95
--- NOTE | 2022-09-13 08:35 | PN.HOSP_ITS ---
Reason for Visit Reason for Visit: Diagnoses Occlusion and stenosis of left carotid artery (09/12/22) Stricture of artery (09/12/22) Paresthesia of skin (09/12/22) Subjective Subjective Feels well. Does have a history of myalgias with statins particularly Lipitor in the past. Has received 2 doses of atorvastatin here. Does complain of some right upper chest tenderness. Objective Data Objective Data Vital Signs: Vital Signs Temp Pulse Resp BP Pulse Ox O2 Del Method 36.8 C 94 16 143/122 H 95 Room Air 09/13/22 03:28 09/13/22 03:28 09/13/22 03:28 09/13/22 03:28 09/13/22 08:14 09/13/22 08:14 Oxygen Delivery Method Room Air Weight: 86.9 kg Body Mass Index (BMI) 27.4 Intake & Output: Intake and Output for Last 24 Hours 09/11/22 09/12/22 09/13/22 23:59 23:59 23:59 Intake Total 480 / 480 2613.33 / 2613.33 Balance 480 / 480 2613.33 / 2613.33 Lab / Micro Data Result Diagrams: 09/12/22 05:48 09/12/22 05:48 Radiography Diagnostic Testing: Radiology Impression Echocardiogram 09/11/22 15:11 Interpretation Summary Normal LV size. Left ventricular systolic function is normal. The estimated ejection fraction is 65 %. Stage 1 diastolic dysfunction. Pulmonary artery systolic pressure is 28 mmHg. Bubble contrast study negative for right to left interatrial shunt. Ordering Physician: Ramy Deluca Performed By: Lauren Grey RDCS Brain MRI 09/12/22 09:22 IMPRESSION: Negative MRI brain without contrast. Electronically Signed: Ulises De Santiago MD at 10:05 EST , Cervical Spine MRI 09/12/22 13:03 IMPRESSION: No evidence for acute fracture or significant bony pathology.. Moderate spondylosis and multilevel spinal stenosis secondary to disc disease and bony hypertrophy Findings as above Electronically Signed: Jose J Brandon MD at 22:13 EST Reading Location ID and State: [facility] / [place] , Service support , Physical Exam Const alert and no apparent distress Constitutional Narrative: Reproducible right anterior chest wall tenderness without any rashes or lesions. HEENT head/scalp atraumatic and moist oral mucous membranes Assessment & Plan Assessment/Plan (1) Arm paresthesia, right: PLAN: MRI brain negative Suspect this may be radicular given the patient's history of a C2 fracture. MRI of the cervical spine: Noted that patient had some mild disc bulging and canal stenosis. Mild right neuroforaminal encroachment at C5-6 and severe narrowing on the left at C5-6. If no evidence of any abscess then would start him on steroids and see what else would need to be done. Start steroids Outpatient therapy Spine surgery follow-up (2) Stenosis of right subclavian artery: PLAN: Lifelong non-smoker. Continue with aspirin. Patient with statin intolerance. From previous. Follow-up with vascular surgery. WILFREDO Donahue 09/12. (3) HTN (hypertension): PLAN: Increase amlodipine from 5 to 10 mg daily. PLAN: Plan Chronic back pain: Continue with pain medications plus gabapentin and cyclobenzaprine. DVT: Ambulation
[2022-09-13 09:25] VITALS: BP 127/93; PULSE 97; RESP 16; TEMP 36.9; O2SAT 94
--- NOTE | 2022-09-13 09:29 | PCM.PN.SRG ---
Subjective Subjective He is doing well this morning. He reports that his R arm symptoms have resolved. He does have some tightness/stiffness in his neck and reports he can sometimes hear crackling when he turns his neck. He denies focal motor weakness, numbness/tingling/pain to extremities, monocular vision loss, facial droop, difficulty speaking, CP, SOB, presyncope/syncope. Objective Data Objective Data Vital Signs: Vital Signs Temp Pulse Resp BP Pulse Ox O2 Del Method 98.2 F 94 16 143/122 H 95 Room Air 09/13/22 03:28 09/13/22 03:28 09/13/22 03:28 09/13/22 03:28 09/13/22 08:14 09/13/22 08:14 Oxygen Delivery Method Room Air Weight: 191 lb 9.307 oz Body Mass Index (BMI) 27.4 Intake & Output: Intake and Output for Last 24 Hours 09/11/22 09/12/22 09/13/22 23:59 23:59 23:59 Intake Total 480 / 480 2613.33 / 2613.33 Balance 480 / 480 2613.33 / 2613.33 Lab / Micro Data Result Diagrams: 09/12/22 05:48 09/12/22 05:48 Radiography Diagnostic Testing: Radiology Impression Echocardiogram 09/11/22 15:11 Interpretation Summary Normal LV size. Left ventricular systolic function is normal. The estimated ejection fraction is 65 %. Stage 1 diastolic dysfunction. Pulmonary artery systolic pressure is 28 mmHg. Bubble contrast study negative for right to left interatrial shunt. Ordering Physician: Ramy Deluca Performed By: Lauren Grey RDCS Brain MRI 09/12/22 09:22 IMPRESSION: Negative MRI brain without contrast. Electronically Signed: Ulises De Santiago MD at 10:05 EST , Cervical Spine MRI 09/12/22 13:03 IMPRESSION: No evidence for acute fracture or significant bony pathology.. Moderate spondylosis and multilevel spinal stenosis secondary to disc disease and bony hypertrophy Findings as above Electronically Signed: Jose J Brandon MD at 22:13 EST Reading Location ID and State: [address] [place] [address] , Service support , Physical Exam Const alert, oriented x3, no apparent distress and healthy appearing General Appearance: cooperative; Negative for combative or lethargic Orientation / Consciousness: awake Exam Limitations: no limitations HEENT Head and Scalp: normocephalic and atraumatic Nose: external nose normal External Ear: external ears normal Eyes EOMs intact bilaterally General Eye: normal appearance of both eyes Neck no carotid bruits General: normal visual inspection and trachea midline; Negative for anterior neck swelling Resp normal respiratory effort and no use of accessory muscles Effort and Inspection: able to speak in complete sentences and symmetric chest movement; Negative for labored, stridor or audible wheezes Auscultation: clear to auscultation bilaterally Cardio regular rate and regular rhythm Cardio Narrative: Radial pulses strong and equal bilaterally. Extremity full ROM, normal capillary refill and no clubbing, cyanosis or edema Skin no rashes or lesions noted and no wounds Neuro oriented x3, CN's II-XII intact bilaterally and no sensory deficits noted Neuro Narrative: Good strength in UE bilaterally overall, very mild weakness in RUE with flexion compared to LUE. Psych thought process normal, cooperative, affect normal, speech normal and activity/motor behavior normal Assessment & Plan Assessment/Plan (1) Carotid stenosis, left: PLAN: CTA Head and Neck had revealed moderate left internal carotid artery stenosis and moderate to severe degenerative changes within c-spine. MRI brain was negative for evidence of acute stroke. Cervical spine MRI revealed moderate spondylosis and multilevel spinal stenosis secondary to disc disease and bony hypertrophy. Without signs of acute changes on brain MRI, very low suspicion for carotid as source of symptoms. With strong distal pulses, also low suspicion that subclavian artery disease is contributory. His RUE symptoms are completely resolved at this time. Will have him follow-up as an outpatient for routine monitoring of carotid disease. Continue with optimal medical therapy of ASA and statin daily which was initiated during this admission. Discharge planning per primary team. Charges/Coding Visit Charges Inpatient E&M: 92827 Subs Hosp L1
[2022-09-13] MEDS: Aspirin 81 MG TAB.CHEW PO (10:09)
[2022-09-13] MEDS: predniSONE 20 MG Tablet 40 MG PO (10:09)
[2022-09-13] MEDS: Gabapentin 600 MG Tablet PO (10:09)
[2022-09-13] MEDS: cycloBENZAPRine HCl 10 MG Tablet PO (10:09)
[2022-09-13] MEDS: amLODIPine 5 MG Tablet PO (10:11)
--- NOTE | 2022-09-13 10:30 | CASEMGMT ---
RN CM Face to Face with patient for initial transition planning/care coordination assessment. RN CM introduced self and role at [facility]. Patient lying in bed, alert and oriented, friend at bedside. Patient willing to participate in assessment and is able to answer all questions appropriately. Care providers, pharmacy, and demographics verified. Patient wishes to discharge home, denies need for home health at this time. Patient states he has no further needs or concerns at this time. CM to follow for discharge planning needs that may arise. PCP: Brice Giraldo [facility] Specialists: bipin Gooden Pharmacy: [facility] Insurance: [place] [facility] Prescription Benefit: yes Living Will/HPOA: none LNOK: Girlfriend Living Arrangements: Patient lives with girlfriend in a 2 story home with bed and bath on first floor. Patient states he is independent at home. Transportation: self, girlfriend DME/HHC: Patient denies DME in the home. No previous HHC or SNF. Disposition Plan: Patient to discharge home with family support and follow-up plans in place. Aixa FAULKNER, RN, CM
--- NOTE | 2022-09-13 11:20 | PCM.DC ---
Discharge Instructions Diet Discharge Diet: Low fat / Low cholesterol Dressing / Incision Call your doctor if you observe: - (Increased numbness or weakness right upper extremity) Follow Up Care Test Results: Test results from this visit will be discussed in further detail at your follow-up appointment, if applicable. Discharge Plan Admission Admit Date/Time: 09/12/22 16:40 Primary Reason for Your Visit: Right arm paresthesias Attending Provider: Jorje Putnam Primary Care Provider: Care Physician,No Primary Consulting Providers: Jorje Donahue ; Ramy Deluca Discharge Orders/Prescriptions Prescriptions: New prednisone 20 mg Tablet 40 mg PO BREAKFAST Qty: 8 0RF aspirin 81 mg Tablet,Chewable 81 mg PO BREAKFAST Qty: 30 0RF amlodipine 10 mg tablet 10 mg PO DAILY Qty: 30 0RF Continued cyclobenzaprine 10 mg tablet 10 mg PO BID Label Comments: TAKE 1 TABLET BY MOUTH TWICE DAILY FOR 30 DAYS FOR MUSCLE SPASMS hydrocodone-acetaminophen 5-325 mg tablet 1 tab PO BID Label Comments: TAKE 1 TABLET BY MOUTH TWICE DAILY NEEDED FOR PAIN FOR 30 DAYS gabapentin 300 mg capsule 600 mg PO BID Label Comments: TAKE 2 CAPSULES BY MOUTH TWICE DAILY FOR 30 DAYS Discontinued celecoxib 200 mg capsule 200 mg PO PRN PRN (Reason: arthritis) Label Comments: TAKE 1 CAPSULE BY MOUTH EVERY DAY NEEDED take WITH FOOD and WATER amlodipine 5 mg Tablet 5 mg PO DAILY Referrals / Follow Up: Jorje Donahue MD [Med Staff - Active Staff] - Within 1 Month Care Physician,No Primary [Primary Care Provider] - [facility] Doctor,Out of [Non-Staff] - Disposition Disposition (needs filled in before D/C Order can be placed): Home, Self Care
--- NOTE | 2022-09-13 11:24 | DS.PCM_ITS ---
Providers Date of Admission: 09/12/22 Primary Care Physician: No Primary Care Phys Consultations 09/11/22 15:11 Consult: Vascular Surgery Routine Consulting Provider: Jorje Donahue Reason for Consult: vertebral artery stenosis EMERGENT Consult: No MD Notified: Yes Date Notified: 09/11/22 Time Notified: 14:23 Method of Notification: ED Physician Initiated Reason For Visit: TIA/CVA Diagnosis Discharge Diagnosis (1) Arm paresthesia, right: Status: Acute Code(s): R20.2 - Paresthesia of skin Plan: MRI brain negative Suspect this may be radicular given the patient's history of a C2 fracture. MRI of the cervical spine: Noted that patient had some mild disc bulging and canal stenosis. Mild right neuroforaminal encroachment at C5-6 and severe narrowing on the left at C5-6. If no evidence of any abscess then would start him on steroids and see what else would need to be done. Start steroids Outpatient therapy Spine surgery follow-up (2) Stenosis of right subclavian artery: Status: Acute Code(s): I77.1 - Stricture of artery Plan: Lifelong non-smoker. Continue with aspirin. Patient with statin intolerance, therefore no statins. Follow-up with vascular surgery. DW Dr. Donahue 09/12. (3) HTN (hypertension): Status: Chronic Code(s): I10 - Essential (primary) hypertension Plan: Increase amlodipine from 5 to 10 mg daily. Plan Chronic back pain: Continue with pain medications plus gabapentin and cyc lobenzaprine. DVT: Ambulation Medications at Discharge Home Medications cyclobenzaprine 10 mg tablet 10 mg PO BID 09/11/22 gabapentin 300 mg capsule 600 mg PO BID 09/11/22 hydrocodone-acetaminophen 5-325mg 5mg-325mg 1 tab PO BID 09/11/22 amlodipine 10 mg tablet 10 mg PO DAILY #30 tabs 09/13/22 aspirin 81 mg chewable tablet 81 mg PO BREAKFAST #30 tabs 09/13/22 prednisone 20 mg tablet 40 mg PO BREAKFAST #8 tabs 09/13/22 Hospital Course Operations None Procedures None Weight / BMI Weight Weight: 86.9 kg Body Mass Index (BMI) 27.4 ABG / Lab / Microbiology Data Result Diagrams: 09/12/22 05:48 09/12/22 05:48 Radiography Diagnostic Testing: Radiology Impression Echocardiogram 09/11/22 15:11 Interpretation Summary Normal LV size. Left ventricular systolic function is normal. The estimated ejection fraction is 65 %. Stage 1 diastolic dysfunction. Pulmonary artery systolic pressure is 28 mmHg. Bubble contrast study negative for right to left interatrial shunt. Ordering Physician: Ramy Deluca Performed By: Lauren Grey RDCS Cervical Spine MRI 09/12/22 13:03 IMPRESSION: No evidence for acute fracture or significant bony pathology.. Moderate spondylosis and multilevel spinal stenosis secondary to disc disease and bony hypertrophy Findings as above Electronically Signed: Jose J Brandon MD at 22:13 EST Reading Location ID and State: [address] [place] [address] , Service support , D/C Instructions Discharge Diet: Low fat / Low cholesterol Call your doctor if you observe: - (Increased numbness or weakness right upper extremity) Meaningful Use Info Meaningful Use Diagnoses (Choose all that apply): None applicable Discharge Plan Admission Admit Date/Time: 09/12/22 16:40 Primary Reason for Your Visit: Right arm paresthesias Attending Provider: Jorje Putnam Primary Care Provider: Care Physician,No Primary Consulting Providers: Jorje Donahue ; Ramy Deluca Discharge Orders/Prescriptions Prescriptions: New prednisone 20 mg Tablet 40 mg PO BREAKFAST Qty: 8 0RF aspirin 81 mg Tablet,Chewable 81 mg PO BREAKFAST Qty: 30 0RF amlodipine 10 mg tablet 10 mg PO DAILY Qty: 30 0RF Continued cyclobenzaprine 10 mg tablet 10 mg PO BID Label Comments: TAKE 1 TABLET BY MOUTH TWICE DAILY FOR 30 DAYS FOR MUSCLE SPASMS hydrocodone-acetaminophen 5-325 mg tablet 1 tab PO BID Label Comments: TAKE 1 TABLET BY MOUTH TWICE DAILY NEEDED FOR PAIN FOR 30 DAYS gabapentin 300 mg capsule 600 mg PO BID Label Comments: TAKE 2 CAPSULES BY MOUTH TWICE DAILY FOR 30 DAYS Discontinued celecoxib 200 mg capsule 200 mg PO PRN PRN (Reason: arthritis) Label Comments: TAKE 1 CAPSULE BY MOUTH EVERY DAY NEEDED take WITH FOOD and WATER amlodipine 5 mg Tablet 5 mg PO DAILY Referrals / Follow Up: Jorje Donahue MD [Med Staff - Active Staff] - Within 1 Month Care Physician,No Primary [Primary Care Provider] - [facility] Doctor,Out of [Non-Staff] - Disposition Disposition (needs filled in before D/C Order can be placed): Home, Self Care Charges/Coding Visit Charges Inpatient E&M: 46354 Disch Hosp
--- NOTE | 2022-09-13 12:15 | PHA.DC.MC ---
Pharmacy Service has performed discharge medication reconciliation and counseling for this patient. 1. ASPIRIN 81MG PO BREAKFAST 2. PREDNISONE 40MG PO BREAKFAST X 4 DAYS The patient's discharge medication list was reviewed for discrepancies and discrepancies were resolved. Home Medications cyclobenzaprine 10 mg tablet 10 mg PO BID muscle spasm 09/11/22 gabapentin 300 mg capsule 600 mg PO BID nerve pain 09/11/22 hydrocodone-acetaminophen 5-325mg 5mg-325mg 1 tab PO BID pain 09/11/22 amlodipine 10 mg tablet 10 mg PO DAILY #30 tabs 09/13/22 aspirin 81 mg chewable tablet 81 mg PO BREAKFAST #30 tabs 09/13/22 prednisone 20 mg tablet 40 mg PO BREAKFAST #8 tabs 09/13/22 The patient was counseled on the following discharge medications and changes in medications for homegoing were reviewed. The Reason for Use, instructions for use, and potential side effects were reviewed for all new medications. The patient's questions regarding all of their medications were answered. The patient was able to verbally demonstrate an understanding of their discharge medications.
== END 2022-09-13 12:38 | disposition home or self-care (01) | DRG 68 ==
LOC: ED 13:50 → PCU 14:37
PROVIDERS: Internal Medicine; Physician Assistant; Admitting Provider Family Medicine; Emergency Provider Emergency Medicine
DX: M50.122 Cervical disc disorder at C5-C6 level with radiculopathy (principal); I77.1 Stricture of artery; I65.22 Occlusion and stenosis of left carotid artery; G89.29 Other chronic pain; I10 Essential (primary) hypertension; M48.02 Spinal stenosis, cervical region; M47.22 Other spondylosis with radiculopathy, cervical region; Z79.82 Long term (current) use of aspirin; Z79.891 Long term (current) use of opiate analgesic; Z79.899 Other long term (current) drug therapy; Z87.81 Personal history of (healed) traumatic fracture
CPT/HCPCS: 70496; 70498; 70551; 71045; 72141; 80048; 80061; 83605; 84484; 85025; 85379; 93005; 93306; 94762; 96361; 96374; 96375; 97802; 99221; 99285; J7030; Q9967; A4216; G0378